=== PATIENT | female | born 1955 | race Two or more races ===

== ENCOUNTER 2020-09-01 18:17 | Inpatient (IN) | payer MEDICAID ==
[~2020-09-01] VITALS: Ht 162.6 cm; Wt 69.0 kg
[2020-09-01 18:59] LABS: Basophils # (auto) 0.2 10 ^3/uL (0-0.2); Basophils % (auto) 1.3 % (0.0-2.0); Eosinophils # (auto) 0.2 10 ^3/uL (0-0.8); Eosinophils % (auto) 1.4 % (0.0-7.0); Hemoglobin 13.5 g/dL (12.2-16.2); Lymphocytes # (auto) 3.6 10 ^3/uL (0.4-5.4); Mean Corpuscular Hemoglobin 27.9 pg (28.0-32.0); Mean Corpuscular Hgb Conc. 33.8 g/dL (32.0-36.0); Mean Corpuscular Volume 82.7 fL (80.0-100.0); Monocytes # (auto) 1.4 10 ^3/uL (0-1.3); Monocytes % (auto) 8.4 % (0.0-12.0); Neutrophils # (auto) 10.9 10 ^3/uL (1.6-8.6); Neutrophils % (auto) 66.9 % (37.0-80.0); Nucleated Red Blood Cells % 0.1 %; Red Blood Cells 4.84 10^6/uL (4.0-5.20); Red Cell Distribution Width 15.3 % (11.8-14.3); White Blood Cell 16.3 10^3/uL (4.4-10.8)
[2020-09-01 19:13] LABS: INR 1.08 (0.9-1.15)
[2020-09-01] MEDS ORDERED: fentaNYL CITRATE 100 MCG/2 ML VL IV ONE (19:15)
[2020-09-01] MEDS ORDERED: ONDANSETRON HCL 4 MG/2 ML VIAL IV ONE (19:15)
[2020-09-01 19:17] LABS: Alanine Aminotransferase 20 U/L (13-56); Albumin 3.4 g/dL (3.4-5.0); Anion Gap 7 (5-15); Aspartate Aminotransferase 12 U/L (15-37); BUN/Creatinine Ratio 19.4; Blood Urea Nitrogen 13 mg/dL (7-18); Calcium 9.4 mg/dL (8.5-10.1); Carbon Dioxide 25 mmol/L (21-32); Chloride 104 mmol/L (98-107); GFR African American 114 mL/min; GFR Non-African American 94 mL/min; Glucose 160 mg/dL (74-106); Lipase 87 U/L (73-393); Magnesium 2.1 mg/dL (1.6-2.6); Potassium 3.7 mmol/L (3.5-5.1); Sodium 136 mmol/L (136-145)
[2020-09-01 19:22] LABS: Alkaline Phosphatase 82 U/L (45-117); Bilirubin, Total 0.5 mg/dL (0.2-1.0); Total Protein 8.2 g/dL (6.4-8.2)
[2020-09-01 20:42] LABS: Urine Bacteria NONE SEEN /hpf (None Seen); Urine Blood Negative /uL (Negative); Urine Specific Gravity 1.038 (1.001-1.035); Urine WBC 11 /hpf (0 - 5)
[2020-09-01] MEDS ORDERED: IOHEXOL 350 MG/ML 100ML IJ ONE (21:09)
[2020-09-01] MEDS ORDERED: PIPERACILLIN-TAZOB 3.375GM 100 ML IV ONE (22:15)
[2020-09-01] MEDS ORDERED: DEXTROSE (50%) 50ML SYRG IV PRN (22:30)
[2020-09-01] MEDS ORDERED: ONDANSETRON HCL 4 MG/2 ML VIAL IV PRN (22:30)
[2020-09-01] MEDS ORDERED: TEMAZEPAM 15 MG CAP PO PRN (22:30)
[2020-09-01] MEDS ORDERED: ACETAMINOPHEN 325 MG TAB PO PRN (22:30)
[2020-09-01] MEDS: HYDROcodone-ACET 5/325MG TAB PO PRN (23:39)
[2020-09-02] VITALS (7 sets, daily range): BP systolic 101–143; BP diastolic 54–77
[2020-09-02] MEDS ORDERED: AMLO-496 PO (02:49)
[2020-09-02] MEDS ORDERED: DOCU100C10 PO (02:49)
[2020-09-02] MEDS ORDERED: METF-370 PO (02:49)
[2020-09-02] MEDS ORDERED: ROSU1TAB13 PO (02:49)
[2020-09-02] MEDS ORDERED: OMEP-260 PO (02:49)
[2020-09-02] MEDS ORDERED: LOSA-39 PO (02:49)
[2020-09-02] MEDS ORDERED: ERTU5TAB PO (02:49)
[2020-09-02] MEDS ORDERED: MEDR10TA9 PO (02:49)
[2020-09-02] MEDS ORDERED: GLIP5TAB12 PO (02:49)
[2020-09-02] MEDS: HYDROcodone-ACET 5/325MG TAB PO PRN ×3 (04:20→18:14)
[2020-09-02] MEDS: InsuLIN REG 1unit/0.01ml Soln (100units/ml) SC SCH ×4 (06:36→21:44)
[2020-09-02] MEDS: ACCU-CHEK COMFORT CURVE STRIP VI SCH ×4 (06:37→21:02)
[2020-09-02] MEDS: FAMOTIDINE 20 MG TAB PO SCH ×2 (09:31→21:02)
[2020-09-02] MEDS: amLODIPine BESYLATE 5 MG TAB PO SCH (09:32)
[2020-09-02 09:37] LABS: Hematocrit 38.5 % (36.0-46.0); Hemoglobin 12.4 g/dL (12.2-16.2); Mean Corpuscular Hgb Conc. 32.3 g/dL (32.0-36.0); Mean Corpuscular Volume 83.8 fL (80.0-100.0); Red Blood Cells 4.59 10^6/uL (4.0-5.20); Red Cell Distribution Width 15.5 % (11.8-14.3)
[2020-09-02 09:46] LABS: Basophils % (manual) 0 (0.0-2.0); Blast Cells 0; Metamyelocytes % 0; Myelocytes % 0; Promyelocytes % 0; Reactive Lymphocytes 0
[2020-09-02 09:53] LABS: Calcium 9.5 mg/dL (8.5-10.1); Potassium 3.8 mmol/L (3.5-5.1)
[2020-09-02 11:10] LABS: Band Neutrophils % (manual) 6; Eosinophils % (manual) 3 (0-7); Lymphocytes % (manual) 13 (10.0-50.0); Monocytes % (manual) 4 (0-12)
[2020-09-02] MEDS: PIPERACILLIN-TAZOB 3.375GM 100 ML IV SCH ×3 (11:40→23:58)
[2020-09-02] MEDS: methylPREDNISolone SOD SUCC 40 MG/ML VL IV SCH ×2 (18:14→23:58)
[2020-09-02] MEDS: CELECOXIB 100 MG CAP PO SCH (21:02)
[2020-09-02] MEDS: ATORVASTATIN 20 MG TAB PO SCH (21:02)
[2020-09-03] VITALS (7 sets, daily range): BP systolic 106–141; BP diastolic 62–87
[2020-09-03 05:45] LABS: Basophils # (auto) 0 10 ^3/uL (0-0.2); Basophils % (auto) 0.1 % (0.0-2.0); Eosinophils # (auto) 0 10 ^3/uL (0-0.8); Hematocrit 38.3 % (36.0-46.0); Hemoglobin 13.2 g/dL (12.2-16.2); Lymphocytes # (auto) 1.2 10 ^3/uL (0.4-5.4); Lymphocytes % (auto) 6.4 % (10.0-50.0); Mean Corpuscular Hemoglobin 28.6 pg (28.0-32.0); Mean Corpuscular Hgb Conc. 34.6 g/dL (32.0-36.0); Mean Corpuscular Volume 82.6 fL (80.0-100.0); Monocytes # (auto) 0.6 10 ^3/uL (0-1.3); Monocytes % (auto) 3.4 % (0.0-12.0); Neutrophils # (auto) 16.3 10 ^3/uL (1.6-8.6); Neutrophils % (auto) 90.1 % (37.0-80.0); Red Blood Cells 4.63 10^6/uL (4.0-5.20); White Blood Cell 18.1 10^3/uL (4.4-10.8)
[2020-09-03 06:03] LABS: BUN/Creatinine Ratio 24.6; Calcium 9.9 mg/dL (8.5-10.1); Potassium 4.2 mmol/L (3.5-5.1)
[2020-09-03] MEDS: ACCU-CHEK COMFORT CURVE STRIP VI SCH ×4 (06:44→22:14)
[2020-09-03] MEDS: InsuLIN REG 1unit/0.01ml Soln (100units/ml) SC SCH ×4 (06:49→22:14)
[2020-09-03] MEDS: PIPERACILLIN-TAZOB 3.375GM 100 ML IV SCH ×4 (07:00→23:28)
[2020-09-03] MEDS: methylPREDNISolone SOD SUCC 40 MG/ML VL IV SCH ×4 (07:00→23:27)
[2020-09-03] MEDS: CELECOXIB 100 MG CAP PO SCH ×2 (11:59→22:12)
[2020-09-03] MEDS: FAMOTIDINE 20 MG TAB PO SCH ×2 (12:00→22:14)
[2020-09-03] MEDS: amLODIPine BESYLATE 5 MG TAB PO SCH (12:08)
[2020-09-03] MEDS ORDERED: LACTULOSE 20Gm/30ML SOLN PO PRN (12:30)
[2020-09-03] MEDS: ATORVASTATIN 20 MG TAB PO SCH (22:14)
[2020-09-04 05:11] VITALS: BP 107/60
[2020-09-04] MEDS: methylPREDNISolone SOD SUCC 40 MG/ML VL IV SCH ×2 (05:35→11:45)
[2020-09-04] MEDS: PIPERACILLIN-TAZOB 3.375GM 100 ML IV SCH ×2 (05:36→11:45)
[2020-09-04] MEDS: InsuLIN REG 1unit/0.01ml Soln (100units/ml) SC SCH ×2 (06:02→11:44)
[2020-09-04] MEDS: ACCU-CHEK COMFORT CURVE STRIP VI SCH ×2 (06:05→11:45)
[2020-09-04 09:00] VITALS: BP 130/75
[2020-09-04] MEDS: CELECOXIB 100 MG CAP PO SCH (09:56)
[2020-09-04] MEDS: amLODIPine BESYLATE 5 MG TAB PO SCH (09:58)
[2020-09-04] MEDS: FAMOTIDINE 20 MG TAB PO SCH (10:00)
[2020-09-04] MEDS ORDERED: ACET-1079 PO (11:57)
[2020-09-04] MEDS ORDERED: PANT40TA2 PO (11:57)
[2020-09-04] MEDS ORDERED: PRED20TA2 PO (11:57)
[2020-09-04] MEDS ORDERED: ALBU108A5 IN (11:57)
[2020-09-04] MEDS ORDERED: DOXY-332 PO (11:57)
[2020-09-04 13:00] VITALS: BP 131/74
[2020-09-04 14:42] VITALS: BP 130/75
[2020-09-04 16:27] VITALS: BP 126/69
== END 2020-09-04 17:15 | disposition home health service (06) | DRG 139 ==
LOC: ER 18:18 → OVERFLOW 22:30 → EAST 09-02 01:36
PROVIDERS: ADMIT Nurse Practitioner; ATTEND Hospitalist
PROC: 0W9B3ZZ Drainage of Left Pleural Cavity, Percutaneous Approach (ICD-10-PCS; principal; 2020-09-03)
DX: J18.9 Pneumonia, unspecified organism (principal); J96.01 Acute respiratory failure with hypoxia; J91.8 Pleural effusion in other conditions classified elsewhere; E11.9 Type 2 diabetes mellitus without complications; N39.0 Urinary tract infection, site not specified; J98.11 Atelectasis; E78.5 Hyperlipidemia, unspecified; I10 Essential (primary) hypertension; Z79.4 Long term (current) use of insulin; Z90.710 Acquired absence of both cervix and uterus; Z20.822 Contact with and (suspected) exposure to COVID-19
CPT/HCPCS: 32555; 36415; 71045; 71260; 74177; 76604; 80048; 80053; 81001; 82962; 83605; 83690; 83735; 83880; 83986; 84484; 85007; 85025; 85027; 85610; 87205; 87426; 89051; 93005; 93306; 96365; 96375; G0378; J1815; J2405; J2543